=== PATIENT | male | born 1940 | race Caucasian/White ===

== ENCOUNTER 2020-07-24 10:39 | Emergency (ER) | payer MEDICARE, SELFPAY ==
--- NOTE | ~2020-07-24 | XR_ITS ---
EXAMINATION: XR CHEST CLINICAL INFORMATION: Shortness of breath and chest pain COMPARISON: Previous chest x-ray July 2012 TECHNIQUE: Frontal view of the chest was obtained. FINDINGS: The cardiac and mediastinal contours are normal. The lungs are clear. There is no pleural effusion or pneumothorax. There are degenerative changes of the spine. XR/XR chest 1V IMPRESSION: No evidence for acute disease in the chest.
--- NOTE | 2020-07-24 10:44 | ECG_ITS ---
Test Reason : CHEST PAIN Blood Pressure : / mmHG Vent. Rate : 064 BPM Atrial Rate : 064 BPM P-R Int : 196 ms QRS Dur : 104 ms QT Int : 404 ms P-R-T Axes : 049 028 035 degrees QTc Int : 416 ms Normal sinus rhythm Normal ECG When compared with ECG of 12-SEP-2009 06:33, No significant change was found Referred By: Generic ED Physician Electronically Signed By:LALITA YOUNG MD
[2020-07-24 10:45] VITALS: BP 189/79; PULSE 66; RESP 18; TEMP 36.6; O2SAT 96; BMI 34.8
[2020-07-24 11:56] VITALS: BP 138/72; PULSE 58; RESP 16; TEMP 36.7; O2SAT 94
--- NOTE | 2020-07-24 12:13 | ED_ITS ---
HPI - Chest Pain General Chief Complaint: Chest Pain Stated Complaint: chest pressure Time Seen by Provider: 07/24/20 12:03 Source: patient and family (Daughter) Mode of arrival: ambulatory Limitations: no limitations History of Present Illness HPI narrative: 79-year-old male came in with his daughter patient woke up this morning found blood clots and red blood in the mouth, patient continued to spit until it cleared, patient not clear where the blood coming from initially thought that he might've bitten his tongue or cheek. Patient also has been having shortness of breath and difficulty breathing with mid chest heaviness started 3 days ago, symptoms are intermittent comes and goes, when it is there it is about 7/10 in severity, no radiation, no other associated symptoms with the pain. Related Data Allergies Allergy/AdvReac Type Severity Reaction Status Date / Time sitagliptin [From JANUVIA] Allergy Intermediate HIVES Verified 07/24/20 10:50 lisinopril Allergy Unknown cough Verified 07/24/20 10:50 latex Allergy Severe rash Uncoded 07/24/20 10:50 Medical Tape Allergy Unknown hives/rash Uncoded 07/28/18 00:00 surgical adhesive tape Allergy Unknown blisters Uncoded 05/18/19 00:00 Review of Systems Review of Systems: All other systems are reviewed and are negative Constitutional: Reports as per HPI and Reports no additional constitutional complaints Eyes: Reports as per HPI and Reports no additional eye complaints Reports system reviewed and no additional complaints, except as documented Cardiovascular: Reports as per HPI and Reports no additional cardiovascular complaints Respiratory: Reports as per HPI and Reports no additional respiratory complaints Gastrointestinal: Reports as per HPI and Reports no additional gastrointestinal complaints Genitourinary: Reports no additional female genitourinary complaints Musculoskeletal: Reports no additional musculoskeletal complaints Skin/Breast: Reports system reviewed and no additional complaints, except as docu Psychiatric: Reports no additional psychiatric complaints Endocrine: Reports no additional endocrine complaints Hematologic/Lymphatic: Reports no additional hematologic/lymphatic complaints Allergic/Immunologic: Reports no additional allergic/immunologic complaints Reports system reviewed and no additional complaints, except as documented and Reports Abnormal speech present [facility] Past Medical History Medical History Heart attack NIDDY (non-insulin dependent diabetes mellitus in young) Social History Social History Alcohol intake: never Smoking Status: Former smoker Smoked in Last 30 Days: No Use of substances other than those prescribed or required for medical reasons: No Advance Directives: No Advance Directives Information Provided: No Physical Exam Vital Signs: Vital Signs: Last Vital Signs Temp 98.4 F 07/24/20 13:57 Pulse 62 07/24/20 13:57 Resp 14 07/24/20 13:57 BP 150/88 H 07/24/20 13:57 Pulse Ox 94 07/24/20 13:57 Body Mass Index 34.8 Vital signs have been reviewed as appeared to be correct. Blood pressure normal. Heart rate normal. Respiration rate normal. Temperature normal. Oxygen saturation normal. Appearance: Alert. Oriented X3. No acute distress. Head: Normal external exam. Normocephalic. Atraumatic. No Kou signs noted. No raccoon eyes noted, no sign of biting tongue or cheeks, no source of active bleeding. Eyes: PERRLA. EOMI. Conjunctiva and sclera normal. Eyelids normal. ENT: TM's Normal. Pharynx normal. Uvula midline. Moist mucous membranes. No trismus noted. No drooling noted. No muffled voice noted. Neck: Normal inspection. Neck supple. FROM. No adenopathy. Thyroid Normal. No meningeal signs. No neck mass noted. CVS: Normal heart rate and rhythm. Heart sound normal. No murmurs noted. Pulses normal throughout. Respiratory: No respiratory distress. Painless inspiration. Breath sounds normal. No wheezes/rales/rhonchi noted. Chest nontender. No accessory muscle usage noted or decreased air movement noted. Abdomen: Soft and nontender. Bowel sounds normal in all 4 quadrants. No distention noted. No organomegaly noted. No visible injury noted. Back: No CVA tenderness. Full range of motion noted. Skin: Skin warm and dry. Normal skin color. Normal skin turgor. No rashes/lesions/lacerations noted. Extremities: No lower extremity edema. Extremities exhibit normal range of motion. Extremities nontender. Neuro: Oriented X 3. No motor deficit. No sensory deficit. Reflexes normal. Course Course Course Narrative: Assessment and plan. 79-year-old male came in feeling chest pressure/shortness of breath for the past few days, patient had unremarkable troponin x2, with unchanged EKG. Will discharge to follow-up with PCP. No source of bleeding from the mouth. MDM - Chest Pain Lab Data Attestation: I reviewed the patient's lab results. Result diagrams: 07/24/20 12:34 07/24/20 12:34 Labs: Lab Results 07/24/20 07/24/20 07/24/20 Range/Units 12:33 12:34 12:34 WBC 7.4 (4.8-10.8) X10*3/uL RBC 4.98 (4.60-5.80) X10*6/uL Hgb 14.4 (14.0-18.0) g/dl Hct 45.8 (42-52) % MCV 92.0 (80-98) fL MCH 28.9 (27.0-33.0) pg MCHC 31.4 (31.0-36.0) g/dl RDW 14.3 (11.0-16.0) % Plt Count 233 (160-400) X10*3/uL MPV 10.9 (9.4-12.4) fL Immature Gran % (Auto) 0.3 (0.0-0.4) % Neut % (Auto) 67.7 (45-73) % Lymph % (Auto) 20.9 (20-40) % [place] % (Auto) 6.7 (2-11) % Eos % (Auto) 4.0 (0-4) % Baso % (Auto) 0.4 (0-2) % Lymph # (Auto) 1.6 (1.2-4.9) X10*3/uL [place] # (Auto) 0.5 (0.1-1.2) X10*3/uL Eos # (Auto) 0.3 (0.0-0.4) X10*3/uL Baso # (Auto) 0.0 (0.0-0.2) X10*3/uL Abs Immat Gran (auto) 0.02 (0.00-0.03) X10*3/uL Absolute Neuts (auto) 5.0 (2.0-8.3) X10*3/uL Absolute Nucleated RBC 0.000 (0.0-0.012) X10*3/uL Nucleated RBC % (auto) 0.0 (0.0-0.2) /100WBC PT 11.3 (10.8-13.0) SEC INR 1.0 (0.9-1.1) APTT 36.2 (24.1-38.0) SEC Sodium 142 (135-145) mmol/L Potassium 4.6 (3.3-5.1) mmol/L Chloride 102 (96-108) mmol/L Carbon Dioxide 34 H (22-29) mmol/L Anion Gap 11 L (12-20) BUN 21 H (9-16) mg/dL Creatinine 1.14 (0.5-1.4) mg/dL Estim Creat Clear Calc 66.1 Estimated GFR > 60 Random Glucose 153 H (60-115) mg/dL Calcium 9.3 (8.4-10.2) mg/dL Total Bilirubin 0.7 (0.0-1.0) mg/dL Direct Bilirubin 0.2 (0.0-0.5) mg/dL AST 11 (5-37) U/L ALT 13 (0-40) U/L Alkaline Phosphatase 73 (39-117) U/L Troponin I High Sens (<3.5-35.0) ng/L B-Natriuretic Peptide (<100) pg/mL Total Protein 6.5 (6.5-8.0) g/dL Albumin 3.7 (3.5-5.0) g/dL Lipase 41 (8-78) U/L Urine Color Urine Appearance Urine pH (5.0-8.0) Ur Specific [place] (1.005-1.025) Urine Protein (NEG-TRACE) MG/DL Urine Glucose (UA) (NEG) MG/DL Urine Ketones (NEG) MG/DL Urine Blood (NEG) Urine Nitrite (NEG) Ur Leukocyte Esterase (NEG) 07/24/20 07/24/20 07/24/20 Range/Units 12:34 14:16 15:00 WBC (4.8-10.8) X10*3/uL RBC (4.60-5.80) X10*6/uL Hgb (14.0-18.0) g/dl Hct (42-52) % MCV (80-98) fL MCH (27.0-33.0) pg MCHC (31.0-36.0) g/dl RDW (11.0-16.0) % Plt Count (160-400) X10*3/uL MPV (9.4-12.4) fL Immature Gran % (Auto) (0.0-0.4) % Neut % (Auto) (45-73) % Lymph % (Auto) (20-40) % [place] % (Auto) (2-11) % Eos % (Auto) (0-4) % Baso % (Auto) (0-2) % Lymph # (Auto) (1.2-4.9) X10*3/uL [place] # (Auto) (0.1-1.2) X10*3/uL Eos # (Auto) (0.0-0.4) X10*3/uL Baso # (Auto) (0.0-0.2) X10*3/uL Abs Immat Gran (auto) (0.00-0.03) X10*3/uL Absolute Neuts (auto) (2.0-8.3) X10*3/uL Absolute Nucleated RBC (0.0-0.012) X10*3/uL Nucleated RBC % (auto) (0.0-0.2) /100WBC PT (10.8-13.0) SEC INR (0.9-1.1) APTT (24.1-38.0) SEC Sodium (135-145) mmol/L Potassium (3.3-5.1) mmol/L Chloride (96-108) mmol/L Carbon Dioxide (22-29) mmol/L Anion Gap (12-20) BUN (9-16) mg/dL Creatinine (0.5-1.4) mg/dL Estim Creat Clear Calc Estimated GFR Random Glucose (60-115) mg/dL Calcium (8.4-10.2) mg/dL Total Bilirubin (0.0-1.0) mg/dL Direct Bilirubin (0.0-0.5) mg/dL AST (5-37) U/L ALT (0-40) U/L Alkaline Phosphatase (39-117) U/L Troponin I High Sens 4.3 3.5 (<3.5-35.0) ng/L B-Natriuretic Peptide 71 (<100) pg/mL Total Protein (6.5-8.0) g/dL Albumin (3.5-5.0) g/dL Lipase (8-78) U/L Urine Color YELLOW Urine Appearance CLEAR Urine pH 7.0 (5.0-8.0) Ur Specific [place] 1.020 (1.005-1.025) Urine Protein NEG (NEG-TRACE) MG/DL Urine Glucose (UA) NEG (NEG) MG/DL Urine Ketones NEG (NEG) MG/DL Urine Blood NEG (NEG) Urine Nitrite NEG (NEG) Ur Leukocyte Esterase NEG (NEG) Imaging Data Chest x-ray: Radiologist's impression: No evidence for acute disease in the chest. ECG Data ECG #1: Interpretation: Normal sinus rhythm at 64 beats per minutes, normal axis deviation, normal intervals except for slight prolongation of QRS, nonspecific flattening T-wave in lead III, and AVF. Discharge Plan Discharge Clinical Impression: Atypical chest pain Patient Disposition: Home, Self-Care Instructions: Chest Pain (ED) Referrals: Gael Lentz MD [Primary Care Provider] - 2 days
[2020-07-24 12:38] LABS: MANUAL DIFF FLAG NO
[2020-07-24 12:43] LABS: Basophils Percent Auto 0.4 % (0-2); Eosinophils Absolute Auto 0.3 X10*3/uL (0.0-0.4); Hematocrit 45.8 % (42-52); Hemoglobin 14.4 g/dl (14.0-18.0); Imm Gran Abs Auto 0.02 X10*3/uL (0.00-0.03); Imm Gran Pct Auto 0.3 % (0.0-0.4); Lymphocytes Absolute Auto 1.6 X10*3/uL (1.2-4.9); Lymphocytes Percent Auto 20.9 % (20-40); Mean Corpuscular HGB Conc 31.4 g/dl (31.0-36.0); Mean Corpuscular Hemoglobin 28.9 pg (27.0-33.0); Mean Platelet Volume 10.9 fL (9.4-12.4); Monocytes Absolute Auto 0.5 X10*3/uL (0.1-1.2); Monocytes Percent Auto 6.7 % (2-11); Neutrophils Percent Auto 67.7 % (45-73); Platelet Count 233 X10*3/uL (160-400); Red Blood Count 4.98 X10*6/uL (4.60-5.80); Red Cell Distribution Width 14.3 % (11.0-16.0); White Blood Count 7.4 X10*3/uL (4.8-10.8)
[2020-07-24 12:50] LABS: Prothrombin Time 11.3 SEC (10.8-13.0)
[2020-07-24 12:53] LABS: Partial Thromboplastin Time 36.2 SEC (24.1-38.0)
[2020-07-24 13:06] LABS: Alanine Aminotransferase 13 U/L (0-40); Albumin Level 3.7 g/dL (3.5-5.0); Alkaline Phosphatase 73 U/L (39-117); Anion Gap 11 (12-20); Aspartate Amino Transferase 11 U/L (5-37); Bilirubin Direct 0.2 mg/dL (0.0-0.5); Bilirubin Total 0.7 mg/dL (0.0-1.0); Blood Urea Nitrogen 21 mg/dL (9-16); Calcium 9.3 mg/dL (8.4-10.2); Carbon Dioxide 34 mmol/L (22-29); Chloride 102 mmol/L (96-108); Creatinine Clr Calc Pharmacy 66.1; Estimated Glomerular Filt Rate > 60; Glucose Random 153 mg/dL (60-115); Lipase 41 U/L (8-78); Potassium 4.6 mmol/L (3.3-5.1); Sodium 142 mmol/L (135-145); Total Protein 6.5 g/dL (6.5-8.0)
[2020-07-24 13:12] LABS: B Type Natriuretic Peptide 71 pg/mL (<100); Troponin-I High Sensitivity 4.3 ng/L (<3.5-35.0)
[2020-07-24 13:57] VITALS: BP 150/88; PULSE 62; RESP 14; TEMP 36.9; O2SAT 94
[2020-07-24 14:27] LABS: Glucose Urine UA NEG (NEG); Leukocyte Esterase Urine NEG (NEG); Nitrite Urine NEG (NEG); Urine Blood NEG (NEG); Urine Ketones NEG (NEG); Urine Protein NEG (NEG-TRACE)
[2020-07-24 14:29] LABS: Appearance Urine CLEAR; Color Urine YELLOW
[2020-07-24 15:36] LABS: Troponin-I High Sensitivity 3.5 ng/L (<3.5-35.0)
[2020-07-24 16:01] VITALS: BP 138/78; PULSE 63; RESP 12
== END 2020-07-24 16:05 | disposition home or self-care (01) ==
PROVIDERS: Emergency Provider Emergency Medicine; PCP Internal Medicine
DX: R07.89 Other chest pain (principal); E11.9 Type 2 diabetes mellitus without complications; I25.2 Old myocardial infarction
CPT/HCPCS: 36415; 71045; 80048; 80076; 81003; 83690; 83880; 84484; 85025; 85610; 85730; 93005; 99283; 99284

== ENCOUNTER 2023-04-27 14:20 | Emergency (ER) | payer MEDICARE, SELFPAY ==
[2023-04-27 14:38] VITALS: BP 118/49; PULSE 70; RESP 18; TEMP 36.9; O2SAT 93; BMI 36.4
--- NOTE | 2023-04-27 18:21 | ED_ITS ---
HPI - Ear Problem General Chief complaint: Ear Problems Stated complaint: R ear infection Time Seen by Provider: 04/27/23 18:21 Source: patient, RN notes reviewed and old records reviewed Mode of arrival: ambulatory History of Present Illness HPI Narrative: 82-year-old male with a past medical history of NH, diabetes, presenting to the ED complaining of right ear pain and feeling blocked x 2 days. Admits to using [id number]-llmmmey earwax drops without improvement and then used Q-tip at home however causes worsening discomfort. Reports slight drainage from the ear. Denies fever/chills, sore throat Related Data Previous Rx's Medication Instructions Recorded amoxicillin 875 mg-potassium 1 tab PO BID 7 days #14 tabs 04/27/23 clavulanate 125 mg tablet Allergies Allergy/AdvReac Type Severity Reaction Status Date / Time sitagliptin [From MAY] Allergy Intermediate HIVES Verified 04/27/23 14:37 lisinopril Allergy Unknown cough Verified 04/27/23 14:37 latex Allergy Severe rash Uncoded 01/31/21 16:56 Medical Tape Allergy Unknown hives/rash Uncoded 01/31/21 16:56 surgical adhesive tape Allergy Unknown blisters Uncoded 01/31/21 16:56 Review of Systems Review of Systems: Constitutional: No Fever, No Chills ENT/Mouth: +Ear Pain, No Nasal Congestion, No Sinus Pain, No Hoarseness, No sore throat, No Rhinorrhea, No Swallowing Difficulty Cardiovascular: No Chest Pain, No SOB Respiratory: No Cough, No Sputum Gastrointestinal: No Nausea, No Vomiting, No Abdominal paing Skin: No Skin Lesions, No rash Neuro: No Weakness Yes all other systems are reviewed and are negative Constitutional: Constitutional: Reports as per [facility] Past Medical History Attestation statement: The following information was validated with the patient. Source: old records reviewed Medical History NIDDY (non-insulin dependent diabetes mellitus in young) Heart attack Social History Social History Alcohol intake: never Advance Directives: No Advance Directives Information Provided: No Physical Exam Vital Signs: Vital Signs: Last Vital Signs Temp 98.4 F 04/27/23 14:38 Pulse 70 04/27/23 14:38 Resp 18 04/27/23 14:38 BP 118/49 L 04/27/23 14:38 Pulse Ox 93 04/27/23 14:38 O2 Del Method Room Air 04/27/23 14:38 BMI result Body Mass Index 36.4 Const: General: cooperative, healthy appearing and no acute distress Orientation/consciousness: patient oriented x3 Limitations: no limitations HEENT: Head: Yes normal to inspection and Yes atraumatic Ears: hearing grossly normal bilaterally, external ears normal, TM normal on the left (Partially obscured by cerumen), Abnormal EAC present cerumen impaction on the right and other (Ecchymosis/superficial abrasion) and unable to visualize TM on the right (Due to cerumen impaction) General nose exam: Normal external nose present Face and sinus: Yes normal facial exam Mouth: Normal oral and palatal mucosa present Throat: Yes posterior oropharynx normal, Yes tonsils normal, Yes uvula midline, No uvula laterally displaced and No uvular edema Eyes: General: appearance normal, both eyes and all related structures EOM: EOMs intact bilaterally Neck: Neck: Yes normal visual inspection and Yes no meningeal signs Resp: Effort & Inspection: normal respiratory effort and no respiratory distress Cardio: Rate: regular rate Skin: Rashes: no rashes Wounds: no wounds Neuro: General: patient oriented x3, tone normal and no meningeal signs Cranial nerves: Yes CN's II-XII intact bilaterally Gait exam (Neuro): Normal gait present Extrem: General: Yes normal to inspection Course Course Course Narrative: > right ear canal irrigated with peroxide/saline, TM with dullness and effusion consistent with otitis media. Will give p.o. antibiotics Results discussed with patient including worrisome signs and symptoms and strict return precautions, and when to return to the emergency department. They verbalized understanding and feel safe for discharge at this time. Procedures Ear Wax Removal Right Ear: Cerumenolytic Used: 5-10% Sodium Bicarb solution Results: Re-examined: cerumen removed completely TM Examination: TM(s) intact, normal appearance Ear Canal Exam: other (Ecchymosis/abrasion self inflicted by patient) Patient Tolerated Procedure: well Complications: no problems Technique: ear canal irrigated Medical Decision Making Medical Decision Making [facility] Narrative: 82-year-old male with a past medical history of NH, diabetes, presenting to the ED complaining of right ear pain and feeling blocked x 2 days. On exam vital signs stable, NAD, nontoxic appearing, physical exam as above, cerumen impaction noted to right ear with some superficial external auditory canal trauma likely from Q-tip use by patient. Left TM WNL with partial obstruction by cerumen. Concern for otitis media/externa. Low suspicion for mastoiditis or chronic otitis externa Plan: Irrigate Please refer to course for remaining clinical decision making, interpretation of labs/imaging results, and discussions with consultants and/or family members. Differential Diagnosis Differential Diagnoses: The differential diagnosis associated with the presentation includes As above Lab Data MDM Lab Attestation statement: I reviewed the patient's lab results. External Record Review External record reviewed: Inpatient record, Office record, Outpatient record, Prior outpatient labs, Prior outpatient radiology, Primary care record and Outside ED record Tests considered The following testing was considered but not selected: As above Discharge Plan Discharge Clinical Impression: Otitis media, Cerumen impaction Patient Disposition: Home, Self-Care Instructions: Ear Infection (ED) Additional Instructions: Avoid planning anything in your ears You can continue to use ear wax drops at home to soften wax Augmentin is an antibiotic please take as prescribed Follow-up with your doctor If symptoms persist or worsen return to the emergency department Prescriptions: New amoxicillin-pot clavulanate 875-125 mg tablet 1 tab PO BID 7 Days Qty: 14 0RF Referrals: Gael Lentz MD [Primary Care Provider] - 1 week
[2023-04-27 19:00] VITALS: PULSE 65; RESP 18; O2SAT 95
== END 2023-04-27 19:01 | disposition home or self-care (01) ==
PROVIDERS: Emergency Provider Emergency Medicine; PCP Internal Medicine
DX: H92.01 Otalgia, right ear (principal); H66.91 Otitis media, unspecified, right ear; H61.21 Impacted cerumen, right ear
CPT/HCPCS: 99283

== ENCOUNTER 2024-02-20 08:30 | Outpatient (RCR) | payer MEDICARE, SELFPAY | END 2024-04-07 13:49 | disposition home or self-care (01) | LOC: HO.CR 08:30 | PROVIDERS: PCP Internal Medicine; Visit Provider Internal Medicine Cardiovascular Disease | DX: Z95.2 Presence of prosthetic heart valve (principal) | CPT/HCPCS: 93798 ==